=== PATIENT | female | born 1965 | race Caucasian/White ===

== ENCOUNTER 2017-08-29 12:10 | Emergency (ER) | payer MEDICAID, MEDICARE ==
[~2017-08-29] VITALS: Ht 167.6 cm; Wt 65.8 kg
[~2017-08-29 12:10] MED LIST: KLO1; NEU300 PO
[2017-08-29 12:29] VITALS: BP_SYST 113
[2017-08-29] MEDS ORDERED: KETOROLAC TROMETHAMINE 60 MG/2 ML VIAL IM ONE (13:30)
[2017-08-29 13:37] LABS: BILIRUBIN,URINE NEGATIVE (NEGATIVE); BLOOD, URINE NEGATIVE (NEGATIVE); CLARITY/URINE CLEAR (CLEAR); COLOR,URINE YELLOW (YELLOW); GLUCOSE,URINE NEGATIVE (NEGATIVE); KETONES,URINE NEGATIVE (NEGATIVE); LEUKOCYTE ESTERASE ,URINE NEGATIVE (NEGATIVE); NITRITE, URINE NEGATIVE (NEGATIVE); PROTEIN URINE NEGATIVE (NEGATIVE); UROBILINOGEN,URINE 0.2 (0.2-1.0)
[2017-08-29 14:16] VITALS: BP_SYST 115
== END 2017-08-29 14:13 | disposition home or self-care (01) ==
LOC: SED 12:10
DX: G89.29 Other chronic pain (principal); M54.5 Low back pain; Z88.2 Allergy status to sulfonamides
CPT/HCPCS: 81003; 96372; 99283; J1885